=== PATIENT | male | born 1940 | race Caucasian/White ===

== ENCOUNTER 2018-09-24 11:46 | Inpatient (IN) ==
[2018-09-19 10:39] LABS: Basophils # (Auto) 0 K/mcL (0.0-0.3); Basophils % (Auto) 0.9 % (0.0-2.0); Eosinophils # (Auto) 0.4 K/mcL (0.0-0.7); Eosinophils % (Auto) 7.8 % (0.0-7.0); Granulocytes % (Auto) 51.9 % (38.0-78.0); Lymphocytes # (Auto) 1.7 K/mcL (1.5-4.8); Lymphocytes % (Auto) 31.2 % (15.5-49.0); Mean Cell Volume 88.7 fL (80.0-100.0); Mean Corpuscular HGB Conc 33.1 g/dL (31.0-36.0); Monocytes # (Auto) 0.4 K/mcL (0.1-0.9); Monocytes % (Auto) 8.2 % (1.0-12.0); Platelet Count 225 K/mcL (140-440); RBC 5.06 M/mcL (4.50-5.90)
[2018-09-19 10:44] LABS: Appearance,Urine CLEAR; Bilirubin,Urine NEG (NEG); Color,Urine YELLOW; Glucose,Urine (UA) NEGATIVE (NEG); Leukocyte Esterase,Urine NEG /uL (NEG); Protein,Urine NEG (NEG); Urine Blood NEG mg/dL (<0.03); Urobilinogen,Urine NEG (NEG)
[2018-09-19 11:12] LABS: Blood Urea Nitrogen 14 mg/dl (8-23)
[~2018-09-24 11:46] MED LIST: 0.9 % SODIUM CHLORIDE 9 ML, KETOROLAC 30 MG, ROPIVACAINE HCL/PF 49.5 ML, EPINEPHrine 0.... IJ SCH; ACETAMINOPHEN 500 MG TABLET PO SCH; CELECOXIB 200 MG CAPSULE PO SCH; PREGABALIN 75 MG CAPSULE PO SCH; ceFAZolin 2 GM in DEXTROSE 5% IN WATER 50 ML IV SCH; oxyCODONE 10 MG TAB.ER.12H PO SCH
[2018-09-24] MEDS ORDERED: ONDANSETRON 4 MG/2 ML VIAL IV ONE (16:05)
[2018-09-24] MEDS ORDERED: ePHEDrine 50 MG/ML AMPUL IV ONE (16:05)
[2018-09-24] MEDS ORDERED: ROPIVACAINE HCL/PF 20 ML VIAL IJ ONE (16:05)
[2018-09-24] MEDS ORDERED: KETAMINE 100 MG/ML ML IV ONE (16:05)
[2018-09-24] MEDS ORDERED: TRANEXAMIC ACID 1,000 MG/10 ML VIAL IV ONE ×3 (16:05→19:40)
[2018-09-24] MEDS ORDERED: PHENYLEPHRINE 10 MG/ML VIAL IV ONE (16:05)
[2018-09-24] MEDS ORDERED: MIDAZOLAM 5 MG/5 ML VIAL IV ONE (16:05)
[2018-09-24] MEDS ORDERED: GLYCOPYRROLATE 0.2 MG/ML VIAL IV ONE (16:05)
[2018-09-24] MEDS ORDERED: PROPOFOL 200 MG/20 ML VIAL IV ONE (16:05)
[2018-09-24] MEDS ORDERED: LIDOCAINE HCL/PF 100 MG/5 ML SYRINGE IV ONE (16:05)
[2018-09-24] MEDS ORDERED: DEXAMETHASONE 10 MG/ML VIAL IV ONE (16:05)
[2018-09-24] MEDS ORDERED: GENTAMICIN SULFATE 800 MG/20 ML VIAL IR ONE (16:20)
[2018-09-24] MEDS ORDERED: FLEETS ADULT ENEMA PR PRN (19:07)
[2018-09-24] MEDS ORDERED: TEMAZEPAM 15 MG CAPSULE PO PRN (19:07)
[2018-09-24] MEDS ORDERED: MAGNESIUM HYDROXIDE 30 ML ORAL.SUSP PO PRN (19:07)
[2018-09-24] MEDS ORDERED: POLYETHYLENE GLYCOL 3350 17 GM PACKET PO PRN (19:07)
[2018-09-24] MEDS ORDERED: BISACODYL 10 MG SUPP.RECT PR PRN (19:07)
[2018-09-24] MEDS ORDERED: BENZOCAINE/MENTHOL 1 LOZENGE PO PRN ×2 (19:07→19:13)
[2018-09-24] MEDS ORDERED: ACETAMINOPHEN 325 MG TABLET PO PRN (19:07)
[2018-09-24] MEDS ORDERED: ONDANSETRON 4 MG/2 ML VIAL IV PRN ×2 (19:07→19:13)
[2018-09-24] MEDS ORDERED: HYDROmorphone 2 MG/ML VIAL IV PRN ×2 (19:07→19:13)
--- NOTE | 2018-09-24 19:07 | Brief Operative Note ---
Date of procedure: 09/24/18 Pre-op diagnosis: right tka mechanical looseniing Post-op diagnosis: same Procedure: let right revision tka all components Anesthesia: DAKOTAH Surgeon: Win Dugan Candy Cutter Hand: Cale Mesa Estimated blood loss (cc): 50 Tourniquet Time (Minutes): 120 Specimens Removed/Pathology: none sent Disposition: PACU
[2018-09-24] MEDS ORDERED: fentaNYL 100 MCG/2 ML VIAL IV PRN (19:13)
[2018-09-24] MEDS ORDERED: MEPERIDINE 25 MG/ML SYRINGE IV PRN (19:13)
[2018-09-24] MEDS ORDERED: METHOCARBAMOL 1,000 MG/10 ML VIAL IV PRN (19:13)
[2018-09-24] MEDS ORDERED: FLUMAZENIL 0.1 MG/ML ML IV PRN (19:13)
[2018-09-24] MEDS ORDERED: NALOXONE HCL 0.4 MG/ML VIAL IV PRN (19:13)
[2018-09-24] MEDS ORDERED: IPRATROPIUM/ALBUTEROL 3 ML AMPUL.NEB NEB PRN (19:13)
[2018-09-24] MEDS ORDERED: KETOROLAC 15 MG/ML VIAL IV PRN (19:13)
[2018-09-24] MEDS ORDERED: LACTATED RINGERS 250 ML IV PRN (19:13)
[2018-09-24] MEDS ORDERED: LACTATED RINGERS 1,000 ML IV SCH (19:15)
[2018-09-24] MEDS ORDERED: SENNOSIDES 1 TABLET PO SCH (21:00)
[2018-09-24] MEDS: 0.45 % SODIUM CHLORIDE 1,000 ML IV SCH (21:06)
[2018-09-24] MEDS: DOCUSATE SODIUM 100 MG CAPSULE PO SCH (22:18)
[2018-09-24] MEDS: ASPIRIN 325 MG ENTERIC COATED TABLET PO SCH (22:18)
[2018-09-24] MEDS: HYDROcodone/APAP 10/325MG TABLET PO PRN (22:18)
[2018-09-24] MEDS: 0.9 % SODIUM CHLORIDE 10 ML SYRINGE IV SCH (22:19)
[2018-09-24] MEDS: ceFAZolin 1 GM VIAL IV SCH (22:19)
[2018-09-25] MEDS: KETOROLAC 15 MG/ML VIAL IV SCH ×3 (00:25→11:30)
--- NOTE | 2018-09-25 04:34 | XRay Report ---
CLINICAL INFORMATION: Postop total knee revision. COMPARISON: Preoperative film 12/31/2007 FINDINGS: Longstem total knee prostheses is anatomically aligned. Transverse fracture through the the superior patella shows 8 mm distraction of fracture fragments. No specific osseous abnormalities. There are few small calcifications ranging up to 8 mm in the tibiofemoral joint periphery. Mild diffuse soft tissue swelling seen - as expected. IMPRESSION: Total knee revision is anatomically aligned. Mildly displaced transverse fracture - superior pole patella Interpreted and Authenticated by: Parviz Peñaloza 09/25/18
[2018-09-25] MEDS: 0.9 % SODIUM CHLORIDE 10 ML SYRINGE IV SCH ×2 (04:59→12:46)
[2018-09-25] MEDS: HYDROcodone/APAP 10/325MG TABLET PO PRN (05:39)
[2018-09-25] MEDS: ceFAZolin 1 GM VIAL IV SCH (05:39)
[2018-09-25] MEDS: 0.45 % SODIUM CHLORIDE 1,000 ML IV SCH (05:57)
--- NOTE | 2018-09-25 07:08 | Operative Note ---
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 PROCEDURE: Right total knee revision of all three components. SURGEON: Win Dugan MD OUTSIDE PLANT FIELD ENGINEER: Cale Mesa PA-C ANESTHESIA: General LMA anesthesia. TOURNIQUET TIME: 120 minutes. IMPLANTS: Per nurse's note. These were long stem total knee arthroplasty implants from [employer] with an 11 mm poly constrained liner, a 40 mm oval patellar button. DESCRIPTION OF PROCEDURE: The patient was brought to the operating room and put to sleep with general LMA anesthesia. Once asleep, the patient had the right leg sterilely prepped and draped in the usual sterile fashion. A timeout was performed and we confirmed this was the operative site by x-rays, consent form and initials. A midline incision was then made. Once this was done, we then exposed the knee with a mid vastus approach. Tourniquet was inflated to 250 pounds of pressure and exposed the knee. It was very difficult because of the width of the patella and of the severity of the wear in the several fractures of the patella. We made a small chamfer cut laterally. We prepared the patella first and prepared it for a 40 mm implant. The patella was grossly loose. We removed the soft tissue from the poly and removed bone and planed it down to for a new implant to sit on, mostly inferiorly. We irrigated thoroughly and this seemed to track well. We then removed the other two components, the femur and the tibial baseplate. The tibial baseplate was grossly loose and bone had grown up around the edges. With these findings, this was easily removed. We placed an intramedullary guide maribel down in the tibia and then made our tibial cut from that. This was cut at neutral and put into place a size 6 baseplate with 8 mm of lateralization, or eccentricity with a 13 mm stem. We then prepared the femur. This was reamed up to the size of 15. It fit very well. We then trialed the 15 and made our new cuts for a +5 distal femur. We went up to a size 6 component to tighten the flexion that was loose and this was done with +5 wedge, distally a +5 wedge and this seemed to fit nicely with an 11 mm poly. We made the box cuts. Once all these components were readied and we had performed a complete synovectomy because of the metalosis that was noted throughout the knee, the whole knee was completely montemayor. The Oxinium femoral component was removed, but no wear of it. It seemed to have all come from the tibial base plate and its loosening. With this, we sent a soft tissue sample for high powered suarez by the pathologist and his reading was 1 cell per high powered field, no signs of infection. Once we had this back we did cemented into place the size 6 tibial baseplate with 8 mm of the eccentricity with a 13 mm stem, 150 mm long and this was cemented into place on the tibia setting the rotation for his anatomy. Once this was done, we then also prepared the femur with a size 7 stem, with also 8 mm of eccentricity at 7 o'clock position, 5 mm posterior wedges medially and laterally as well as 5 mm wedges distally. This seemed to match very nicely and this seemed to fit the cement. It was very secure and the implant seemed to be very secure. As it was tapped into place excess cement was removed. We then cemented into place a size 40 mm eccentric patella. This was clamped into place and secured until dried. We deflated the tourniquet at 120 minutes and controlled any bleeding. We irrigated thoroughly, kept the knee at 45 degrees and closed the mid vastus approach with #1 Stratafix x2 sutures, closed the skin with 2-0 Vicryl and adhesive closure. The patient tolerated this well. There was no complication. RBH:stevo Job ID: [id number] Doc ID: [id number] Win Dugan MD
--- NOTE | 2018-09-25 07:36 | Orthopedic Progress Note ---
Subjective Patient information: Note initiated : 09/25/18 at 7:35 am Service Date, if different from initiated Date: [] Patient: Jerome Nazario 78 y/o M admitted on 09/24/18 for Right Total Knee Arthroplasty Revision. Chief Complaint: [Pt is stable this morning on post operative day 1 without any significant concerns or complaints. Patients vital signs have remained stable. Patients dressing is dry and is grossly intact from a neurovascular and motor standpoint. Patients 10 point ROS is otherwise negative. ] Objective Vital signs: Vital Signs Temp Pulse Resp BP BP Pulse Ox 09/25/18 07:16 97.9 F 63 14 127/66 97 09/25/18 02:30 97.9 F 65 14 100/59 93 09/24/18 22:55 97.8 F 73 14 118/69 95 09/24/18 21:55 82 118/69 93 09/24/18 21:25 82 112/73 93 09/24/18 20:55 68 126/73 09/24/18 20:42 82 128/72 97 09/24/18 20:25 72 132/71 92 09/24/18 20:10 97.2 F 81 126/82 90 09/24/18 20:00 92 09/24/18 19:55 98 H 158/78 93 09/24/18 19:50 97.7 F 73 13 139/75 95 09/24/18 19:35 97.1 F 79 16 130/48 96 09/24/18 19:20 97.1 F 70 12 133/57 94 09/24/18 19:15 70 12 123/54 94 09/24/18 19:10 73 12 122/54 95 09/24/18 19:05 97.5 F 78 12 117/52 94 09/24/18 12:00 98.4 F 18 140/77 98 Intake and Output 09/24/18 09/25/18 09/25/18 21:59 05:59 13:59 Intake Total 2400 820 Output Total 675 600 Balance 2400 145 -600 Intake: Oral 820 IV - Manual Only 2400 Output: Void Amount 675 600 Other: Meal Dinner Percent of Meal Consumed 100% Urine Appearance Clear Clear Urine Color Dark Yellow Straw Urine Odor Normal Normal Weight 267 lb 8 oz Intake & Output: Intake & Output 09/24/18 09/25/18 09/25/18 21:59 05:59 13:59 Intake Total 2400 820 Output Total 675 600 Balance 2400 145 -600 Weight 267 lb 8 oz Intake: Oral 820 IV - Manual Only 2400 Output: Void Amount 675 600 Other: Meal Dinner Percent of Meal Consumed 100% Urine Appearance Clear Clear Urine Color Dark Yellow Straw Urine Odor Normal Normal Incision: Yes healing Incision clean and dry: Yes Dressing: Yes clean Weight bearing status: full Neurological exam IM: Yes motor sensory intact, Yes neurovascular intact Extremities exam IM: Yes Foot pink and warm, Yes neurovascular intact - Labs CBC & BMP: 09/25/18 04:23 09/19/18 09:08 Labs: 09/25/18 09/19/18 04:23 09:08 Hgb 14.9 Hct 36.8 L 44.9 Assessment and Plan (1) History of revision of total knee arthroplasty The patient has been educated regarding dressing care, Physical Therapy recommendations, home exercises, restrictions, and follow up appointments. The patient has had all necessary DME prescribed. The patient has remained relatively stable during their hospital course. Status: Acute
--- NOTE | 2018-09-25 07:38 | Discharge Summary ---
Ortho Discharge - TKA - Patient Instructions Diet: Regular Diet Activity: activity as tolerated, weight bearing as tolerated Total Knee Protocol: For Total Knee: Start ROM DIEGO with stationary bike or rocking chair. Work on gaining full extension of knee. Posterior dislocation precautions provided. Hip abductor strengthening and gait training instructions provided. Apply Cryocuff as instructed. Dressing Care: May shower in 2 days, Aquacel Ag - leave on for 5 days - Problem Maintenance (1) History of revision of total knee arthroplasty Status: Acute - Follow Up Plan Disposition: Home, Self-Care Prognosis: Good Rehab Potential: Good I certify that the patient requires SNF services: No Overall status at discharge: patient is progressing back to baseline - Orders For Discharge Prescriptions: Aspirin [Ecotrin] 325 mg PO BID #60 tab.ec Docusate Sodium [Colace] 100 mg PO BID #60 cap HYDROcodone/APAP 10/325MG [[place] 10-325Mg] 1 - 2 tab PO Q4HP PRN #75 tab PRN Reason: Pain Level 3-6
[2018-09-25] MEDS: ASPIRIN 325 MG ENTERIC COATED TABLET PO SCH (09:04)
[2018-09-25] MEDS: DOCUSATE SODIUM 100 MG CAPSULE PO SCH (09:07)
--- NOTE | 2018-09-26 13:28 | Surgical Pathology Report ---
HISTOLOGY SPECIMEN MICROSCOPIC DIAGNOSIS SYNOVIUM, RIGHT KNEE, EXCISION: -- SYNOVIUM AND SOFT TISSUE WITH CHRONIC INFLAMMATION AND ASSOCIATED WEAR DEBRIS. -- NO SIGNIFICANT NEUTROPHILIC INFLAMMATION IDENTIFIED (LESS THAN ONE NEUTROPHIL PER HIGH POWER FIELD). (DMT:adj) INTRAOPERATIVE CONSULTATION FROZEN SECTION DIAGNOSIS ([facility] [place] [place] FSA) SYNOVIUM, RIGHT KNEE, EXCISION: -- LESS THAN ONE NEUTROPHIL PER HIGH POWER FIELD. (DMT:adj) CLINICAL HISTORY Right knee pain; total knee arthroplasty in 2007. GROSS DESCRIPTION Received fresh for frozen section consultation, labeled right knee synovium, is a 4.7 x 2.5 x 0.8 cm ludwig-pink fibrofatty soft tissue fragment. Approximately 30% of the specimen has montemayor-black discoloration. The specimen is serially sectioned and approximately 70% is submitted for frozen section consultation and resubmitted as FSA. (DMT:sln) Electronically Signed by: Shaka Orellana M.D.
== END 2018-09-25 14:18 | disposition home or self-care (01) | DRG 467 ==
LOC: MEDSUR 11:46
PROVIDERS: ADMIT Orthopaedic Surgery; ATTEND Orthopaedic Surgery

== ENCOUNTER 2020-08-19 15:25 | Inpatient (IN) ==
[2020-08-19] MEDS ORDERED: 0.9 % SODIUM CHLORIDE 1,000 ML IV ONE (16:14)
--- NOTE | 2020-08-19 16:31 | Emergency Department Note ---
HPI General Chief complaint: Cold/Flu Symptoms Stated complaint: covid positive, feels weak Time Seen by Provider: 08/19/20 15:34 Source: patient Mode of arrival: ambulatory Limitations: no limitations History of Present Illness HPI Narrative: 79-year-old male who tested positive for Covid yesterday. He is been having symptoms for 8 days. He is having sinus congestion, dry cough, fatigue, and shortness of breath that is worse with laying down. He is having some mild nausea with his coughing, no vomiting, no diarrhea. Not on any chronic medications. Does not have a history of hypertension. Blood pressures are slightly elevated here at 146/70 mmHg. Denies fever/chills/sweats. also tested positive for Covid. Related Data Previous Rx's Medication Instructions Recorded aspirin 325 mg PO BID #60 tab.ec 09/25/18 docusate sodium 100 mg PO BID #60 cap 09/25/18 hydrocodone-acetaminophen 1 - 2 tab PO Q4HP PRN #75 tab 09/25/18 Allergies Allergy/AdvReac Type Severity Reaction Status Date / Time No Known Drug Allergies Allergy Verified 09/24/18 22:32 Review of Systems ROS ROS Narrative: Narrative: All systems ED: reviewed and negative except as stated. PFSH Narrative Patient History Narrative: Narrative: Medical/Surgical/Family History All Active Problems (Updated 08/19/20 @ 18:54 by Nolvia Carvajal PA-C) History of revision of total knee arthroplasty (Acute) Hypoxia (Acute) SARS-CoV-2 positive (Acute) Pneumonia (Acute) Acute hyponatremia (Acute) Social History Smoking Status: Never smoker Exam Narrative Narrative: General: AOx3, NAD, nontoxic appearing. Pleasant and conversant. HEENT: PERRLA, EOMI, normocephalic. Moist mucous membranes. Normal facies and normal dentition. Congested. Chest: Symmetric, no pain to palpation Respiratory: Diminished breath sounds in the right lower base. Crackles throughout. No respiratory distress. Unlabored breathing. Hypoxic to 87% on room air. This improves to 95% with 2 L nasal cannula. Heart: Regular rate and rhythm, no murmurs/clicks/rubs. Abdomen: Non-tender, Non distended, normal bowel tones. No organomegaly. Extremities: Warm and well perfused. No edema. DP 2+ bilaterally. No venous stasis. Neuro: No focal deficits. Cranial nerves II-XII normal. Skin: Warm dry, no rashes or lesions, no cyanosis. Psych: Normal mood and affect Heme/Lymph: No bruising General Limitations: no limitations Course Course Course Narrative: 79-year-old male positive for Covid presents with hypoxia. Reevaluation(s) Reevaluation #1: We will check basic blood work, lactic acid, chest x-ray. Evaluate for oxygen need--> sats 86 to 87% on room air. Reevaluation #2: Patient meets criteria for severe Covid. Start remdesivir and dexamethasone. Chest x-ray shows possible interstitial edema/inflammation, will start empiric ceftriaxone and azithromycin empirically for possible pneumonia. Sodium is 128. He is receiving normal saline IV fluid replacement. Oxygen saturations are maintaining at 95% on 2 L nasal cannula. Awaiting hospitalist for admission. Vital Signs Vital signs: Vital Signs Temperature 98.6 F 08/19/20 15:26 Pulse Rate 75 08/19/20 15:26 Respiratory Rate 18 08/19/20 15:26 Blood Pressure 147/73 08/19/20 15:26 Pulse Oximetry (%) 95 08/19/20 15:26 Temperature 98.6 F 08/19/20 15:26 Pulse Rate 71 08/19/20 19:24 Respiratory Rate 18 08/19/20 15:26 Blood Pressure 144/63 08/19/20 18:31 Pulse Oximetry (%) 94 08/19/20 19:25 [facility] MDM Narrative Medical decision making narrative: Hypoxia Covid pneumonia Severe Covid Hyponatremia Patient meets criteria for admission. He has been discussed with the hospitalist who is accepted. Remdesivir and dexamethasone per Protocol. Rocephin and azithromycin have also been given. He has received 1 L normal [place] ine. Lab Data Result diagrams: 08/19/20 16:25 08/19/20 16:25 Labs: Lab Results 08/19/20 08/19/20 08/19/20 Range/Units 16:25 16:25 16:57 WBC 5.9 (4.5-11.0) K/mcL RBC 4.82 (4.50-5.90) M/mcL Hgb 14.3 (13.5-16.5) g/dL Hct 42.7 (41.0-55.0) % MCV 88.6 (80.0-100.0) fL MCH 29.7 (26.0-34.0) pg MCHC 33.5 (31.0-36.0) g/dL RDW 13.3 (11.5-14.5) % Plt Count 194 (140-440) K/mcL MPV 11.3 H (7.4-10.4) fL Seg Neutrophils % 71 (38-78) % Band Neutrophils % 3 (0-10) % Lymphocytes % 18 (15-49) % Monocytes % (Manual) 8 (1-12) % Platelet Estimate Normal (Normal) RBC Morphology Normal (Normal) VBG Lactic Acid 0.9 (0.5-2.0) mmol/L Sodium 128 L (133-145) mmol/L Potassium 4.2 (3.3-5.1) mmol/L Chloride 93 L (96-108) mmol/L Carbon Dioxide 27 (22-30) mmol/L Anion Gap 8.0 (8.0-16.0) BUN 15 (8-23) mg/dL Creatinine 1.1 (0.7-1.2) mg/dL GFR Calculation 64 Glucose 106 H (70-105) mg/dL Calcium 8.6 (8.6-10.4) mg/dL Total Bilirubin 0.7 (0.1-1.0) mg/dL AST 45 H (<40) U/L ALT 19 (<40) U/L Alkaline Phosphatase 37 L (39-117) U/L Total Protein 6.8 (5.9-8.4) gm/dL Albumin 3.6 (3.2-5.2) gm/dL Globulin 3.2 (2.2-3.7) gm/dL Albumin/Globulin Ratio 1.1 (1.0-2.3) Discharge Plan Patient/Caregiver Discharge Instructions Pt seen by WHITING CAN WORKER/PA only: Yes Clinical Impression: Hypoxia, SARS-CoV-2 positive, Pneumonia, Acute hyponatremia Patient Disposition: Xfer As Inpt ([facility]) Follow up with: Shaka Persaud MD [Primary Care Provider] - Prescriptions: No Action hydrocodone-acetaminophen 1 TAB tablet 1 - 2 tab PO Q4HP PRN (Reason: Pain Level 3-6) Qty: 75 RF: 0 aspirin 325 MG tablet,delayed release (DR/EC) 325 mg PO BID Qty: 60 RF: 0 docusate sodium 100 MG capsule 100 mg PO BID Qty: 60 RF: 0
--- NOTE | 2020-08-19 17:20 | XRay Report ---
INDICATION: hypoxia TECHNIQUE: AP portable semiupright chest x-ray COMPARISON: None FINDINGS: Lungs:No parenchymal consolidation. There is diffuse interstitial abnormality with peribronchial thickening and probable septal lines. Findings are probably secondary to interstitial edema. Is possible. Clinical correlation recommended. Heart, vascular:Mild cardiomegaly. Pulmonary vascularity is prominent consistent with pulmonary congestion Mediastinum, jason:No mediastinal widening. No hilar mass Pleura:No pleural fluid. No pleural-based mass or calcification Skeletal:Previous right reverse shoulder arthroplasty IMPRESSION: 1. Cardiomegaly and probable interstitial pulmonary edema 2. Interstitial pneumonia is possible Interpreted and Authenticated by: Parviz Ayers 08/19/20
[2020-08-19] MEDS ORDERED: cefTRIAXone 2 GM in DEXTROSE 5% IN WATER 50 ML IV ONE (17:42)
[2020-08-19] MEDS ORDERED: AZITHROMYCIN 500 MG in DEXTROSE 5% IN WATER 250 ML IV ONE (17:43)
[2020-08-19 17:51] LABS: Hematocrit 42.7 % (41.0-55.0); Hemoglobin 14.3 g/dL (13.5-16.5); Mean Cell Volume 88.6 fL (80.0-100.0); Mean Corpuscular HGB Conc 33.5 g/dL (31.0-36.0); Mean Platelet Volume 11.3 fL (7.4-10.4); Platelet Count 194 K/mcL (140-440); RBC 4.82 M/mcL (4.50-5.90); Red Cell Distribution Width 13.3 % (11.5-14.5); WBC 5.9 K/mcL (4.5-11.0)
[2020-08-19 18:07] LABS: ALT/SGPT 19 U/L (<40); AST/SGOT 45 U/L (<40); Albumin 3.6 gm/dL (3.2-5.2); Albumin/Globulin Ratio 1.1 (1.0-2.3); Alkaline Phosphatase 37 U/L (39-117); Bilirubin,Total 0.7 mg/dL (0.1-1.0); Blood Urea Nitrogen 15 mg/dL (8-23); Calcium 8.6 mg/dL (8.6-10.4); Carbon Dioxide 27 mmol/L (22-30); Chloride 93 mmol/L (96-108); Globulin 3.2 gm/dL (2.2-3.7); Glomerular Filtration Rate 64; Glucose 106 mg/dL (70-105)
[2020-08-19 18:09] LABS: Band Neutrophils % 3 % (0-10); Lymphocytes % 18 % (15-49); Monocytes % (Manual) 8 % (1-12); Platelet Estimate NORMAL (Normal); RBC Morphology NORMAL (Normal); Segmented Neutrophils % 71 % (38-78)
[2020-08-19] MEDS ORDERED: REMDESIVIR 200 MG in 0.9 % SODIUM CHLORIDE 250 ML IV ONE (18:17)
[2020-08-19] MEDS ORDERED: DEXAMETHASONE 10 MG/ML VIAL IV ONE (18:19)
--- NOTE | 2020-08-19 19:29 | Internal Med History&Physical ---
HPI History of Present Illness Patient information: Note initiated : 08/19/20 at 7:24 pm Service Date, if different from initiated Date: [] Patient: Jerome Nazario a 79 y/o M admitted on for covid positive, feels weak. Chief Complaint: [] History of present illness: Mr. Nazario is a 79 year old male history of obesity, osteoarthritis status post knee arthroplasty who presented to the ED for progressive shortness of breath, dry cough, and pleuritic chest pain for about 7 days. The patient tested positive for COVID 19 the day prior to presenting to the ED. In the ED the patient had a new oxygen requirement of about 2 l/min. There is no leukocytosis, chest xray appears consistent with viral pneumonia. The patient was admitted for acute hypoxic respiratory failure secondary to COVID 19. Review of systems Constitutional: positive for fever and fatigue Eyes: no vision changes or pain Cardiovascular: positive for pleuritic chest pain, no palpitations Respiratory: positive for dry cough and dyspnea Gastrointestinal: positive for abdominal pain likely musculoskeletal, no nausea, vomiting, or diarrhea Genitourinary: no dysuria or difficulty voiding Musculoskeletal: no arthralgia or myalgia Integumentary: no skin lesion or wound Neurological: no focal weakness or numbness Psychiatric: no anxiety or depression PFSH PFSH All Active Problems (Updated 08/19/20 @ 18:54 by Nolvia Carvajal PA-C) History of revision of total knee arthroplasty (Acute) Hypoxia (Acute) SARS-CoV-2 positive (Acute) Pneumonia (Acute) Acute hyponatremia (Acute) MEDS/ALLERGIES Home Medications and Allergies Home Medications Medication Instructions Recorded Confirmed Type aspirin 325 mg PO BID #60 tab.ec 09/25/18 Rx docusate sodium 100 mg PO BID #60 cap 09/25/18 Rx hydrocodone-acetaminophen 1 - 2 tab PO Q4HP PRN #75 tab 09/25/18 Rx Allergies Allergy/AdvReac Type Severity Reaction Status Date / Time No Known Drug Allergies Allergy Verified 09/24/18 22:32 EXAM Constitutional Vitals: Temp Pulse Resp BP Pulse Ox 98.6 F 68 18 144/63 95 08/19/20 15:26 08/19/20 18:31 08/19/20 15:26 08/19/20 18:31 08/19/20 18:31 Additional findings Additional findings: Head: Atraumatic, normal inspection. Eyes: normal appearance, no scleral icterus. Neck: full ROM Respiratory: bilateral fine rales and wheezing Cardiovascular: normal rate and rhythm, S1, S2. GI/Abdominal: soft, nontender, no guarding. Extremities: full range of motion, nontender. Neurological: CN II-XII intact, intact motor, intact sensation. Psychiatric: normal mood. Skin: warm, normal color DATA Data Completed and Pending Labs: Labs from last 24 hours 08/19/20 08/19/20 08/19/20 16:57 16:25 16:25 WBC 5.9 RBC 4.82 Hgb 14.3 Hct 42.7 MCV 88.6 MCH 29.7 MCHC 33.5 RDW 13.3 Plt Count 194 MPV 11.3 H Seg Neutrophils % 71 Band Neutrophils % 3 Lymphocytes % 18 Monocytes % (Manual) 8 Platelet Estimate Normal RBC Morphology Normal VBG Lactic Acid 0.9 Sodium 128 L Potassium 4.2 Chloride 93 L Carbon Dioxide 27 Anion Gap 8.0 BUN 15 Creatinine 1.1 GFR Calculation 64 Glucose 106 H Calcium 8.6 Total Bilirubin 0.7 AST 45 H ALT 19 Alkaline Phosphatase 37 L Total Protein 6.8 Albumin 3.6 Globulin 3.2 Albumin/Globulin Ratio 1.1 A/P Narrative A/P Narrative: Assessment: 79 year old male with a history of obesity, knee osteoarthritis admitted for acute hypoxic respiratory failure likely secondary to COVID 19. ED labs also showed moderate hyponatremia. #Acute hypoxic respiratory failure #COVID 19 #Hyponatremia-moderate #Obesity-BMI 35 #Osteoarthritis Plan -Dexamethasone and Remdesivir per COVID 19 protocol. -Oxygen supplementation as needed. -Follow sodium in AM. -Follow CBC, inpatient panel, CPR. -DVT ppx: Lovenox SQ BID and SCD -Code status: Full -Disposition: will depend on clinical course Time Spent With Patient Time: Total time spent is greater than 50% in coordination of care (as documented) at patient's floor/unit and/or counseling patient:
[2020-08-19] MEDS ORDERED: REMDESIVIR 100 MG in 0.9 % SODIUM CHLORIDE 250 ML IV SCH (20:43)
[2020-08-19] MEDS ORDERED: ONDANSETRON 4 MG/2 ML VIAL IV PRN (20:43)
[2020-08-19] MEDS ORDERED: ALBUTEROL SULFATE 2.5 MG/3 ML NEBULIZER NEB PRN (20:43)
[2020-08-19] MEDS: ENOXAPARIN 40 MG/0.4 ML SYRINGE SQ SCH (21:41)
[2020-08-19] MEDS: 0.9 % SODIUM CHLORIDE 10 ML SYRINGE IV SCH (21:41)
[2020-08-19] MEDS: SENNOSIDES 1 TABLET PO SCH (21:42)
[2020-08-19] MEDS: DOCUSATE SODIUM 100 MG CAPSULE PO SCH (21:42)
[2020-08-20] MEDS: 0.9 % SODIUM CHLORIDE 10 ML SYRINGE IV SCH ×4 (04:50→21:03)
[2020-08-20 07:38] LABS: Hematocrit 43.9 % (41.0-55.0); Hemoglobin 14.7 g/dL (13.5-16.5); Mean Cell Volume 87.8 fL (80.0-100.0); Mean Corpuscular HGB Conc 33.5 g/dL (31.0-36.0); Mean Platelet Volume 11.6 fL (7.4-10.4); Platelet Count 198 K/mcL (140-440); Red Cell Distribution Width 13.5 % (11.5-14.5); WBC 3.4 K/mcL (4.5-11.0)
[2020-08-20 07:40] LABS: ALT/SGPT 17 U/L (<40); AST/SGOT 36 U/L (<40); Albumin 3.4 gm/dL (3.2-5.2); Albumin/Globulin Ratio 1.1 (1.0-2.3); Alkaline Phosphatase 37 U/L (39-117); Bilirubin,Direct < 0.2 mg/dL (0-0.3); Bilirubin,Total 0.4 mg/dL (0.1-1.0); Blood Urea Nitrogen 18 mg/dL (8-23); Calcium 8.8 mg/dL (8.6-10.4); Carbon Dioxide 25 mmol/L (22-30); Chloride 100 mmol/L (96-108); Globulin 3.1 gm/dL (2.2-3.7); Glomerular Filtration Rate 71; Glucose 160 mg/dL (70-105); Lactate Dehydrogenase 563 U/L (135-225); Phosphorous 3.4 mg/dL (2.5-4.5); Triglycerides 49 mg/dL (<150); Uric Acid 5.6 mg/dL (2.5-8.0)
[2020-08-20 08:19] LABS: Band Neutrophils % 2 % (0-10); Lymphocytes % 11 % (15-49); Platelet Estimate NORMAL (Normal); RBC Morphology NORMAL (Normal); Reactive Lymphocytes 7 % (0-2); Segmented Neutrophils % 80 % (38-78)
[2020-08-20] MEDS ORDERED: DEXAMETHASONE 10 MG/ML VIAL IV SCH (09:00)
[2020-08-20] MEDS: ENOXAPARIN 40 MG/0.4 ML SYRINGE SQ SCH ×2 (09:55→21:03)
[2020-08-20] MEDS: DOCUSATE SODIUM 100 MG CAPSULE PO SCH ×2 (09:56→21:03)
--- NOTE | 2020-08-20 10:27 | Internal Med Progress Note ---
SUBJECTIVE Subjective Patient information: Note initiated : 08/20/20 at 10:26 am Service Date, if different from initiated Date: [] Patient: Jerome Nazario 79 y/o M admitted on 08/19/20 for covid positive, feels weak. Chief Complaint: [] Interval history: Mr. Nazario is a 79 year old male history of obesity, osteoarthritis status post knee arthroplasty who presented to the ED for progressive shortness of breath, dry cough, and pleuritic chest pain for about 7 days. The patient tested positive for COVID 19 the day prior to presenting to the ED. In the ED the patient had a new oxygen requirement of about 2 l/min. There is no leukocytosis, chest xray appears consistent with viral pneumonia. The patient was admitted for acute hypoxic respiratory failure secondary to COVID 19. 08/20 The patient feels better today, improved oxygen requirement. Physical exam Head: Atraumatic, normal inspection. Eyes: normal appearance, no scleral icterus. Neck: full ROM Respiratory: no respiratory distress, bilateral fine rales, bilateral expiratory wheezes when coughing. Cardiovascular: normal rate and rhythm, S1, S2. GI/Abdominal: soft, nontender, no guarding. Extremities: full range of motion, nontender. Neurological: CN II-XII intact, intact motor, intact sensation. Psychiatric: normal mood. Skin: warm, normal color Constitutional Vitals: Vital Signs Temp Pulse Resp BP Pulse Ox 96.9 F L 65 18 124/84 94 08/20/20 07:14 08/20/20 07:14 08/20/20 07:14 08/20/20 07:14 08/20/20 07:14 Period Temp Pulse Resp BP Sys/Callaway Pulse Ox Last 24 Hr 96.6 F-99.7 F 61-79 18-20 124-164/63-84 87-95 Intake and Output 08/19/20 08/20/20 08/20/20 21:59 05:59 13:59 Intake Total 1550 680 Output Total 475 1 Balance 1550 205 -1 Weight 114.078 kg Intake & Output: Intake & Output 08/19/20 08/20/20 08/20/20 21:59 05:59 13:59 Intake Total 1550 680 Output Total 475 1 Balance 1550 205 -1 Weight 114.078 kg Intake: IV 1550 Sodium Chloride 0.9% 1,000 ml @ 1000 Wide Open IV BOLUS ONE Rx#: [id number] Zithromax 500 mg In Dextrose 5% 250 in Water 250 ml @ 250 mls/hr IV ONCE ONE Rx#:[id number] Veklury 200 mg In Sodium 250 Chloride 0.9% 250 ml @ 500 mls/ hr IV ONCE ONE Rx#:[id number] Rocephin 2 gm In Dextrose 5% in 50 Water 50 ml @ 100 mls/hr IV ONCE ONE Rx#:[id number] Oral 680 Output: Void Amount 475 Urine/Stool Mix 1 Other: Meal Nourishment/Supplement Percent of Meal Consumed 100% Nourishment/Supplement name yogurt Urine Appearance Clear Urine Color Bright Yellow Dark Yellow Stool Size Moderate Stool Color Brown Stool Consistency Normal for Patient # Voids 1 1 1 # Bowel Movements 1 OBJ DATA Labs CBC & Chem 7: 08/20/20 05:58 08/20/20 05:58 Labs: Abnormal Lab Results 08/20/20 08/20/20 08/19/20 05:58 05:58 16:25 WBC 3.4 L MPV 11.6 H Seg Neutrophils % 80 H Lymphocytes % 11 L Reactive Lymphocytes 7 H Sodium 128 L Chloride 93 L Glucose 160 H 106 H AST 45 H Alkaline Phosphatase 37 L 37 L Lactate Dehydrogenase 563 H C-Reactive Protein 11.10 H 08/19/20 16:25 WBC MPV 11.3 H Seg Neutrophils % Lymphocytes % Reactive Lymphocytes Sodium Chloride Glucose AST Alkaline Phosphatase Lactate Dehydrogenase C-Reactive Protein Meds: Medications Acetylcysteine (Acetylcysteine 800 Mg/4 Ml Vial) 600 mg NEB QID [facility] Albuterol Sulfate (Albuterol Sulfate 2.5 Mg/3 Ml Nebulizer) 2.5 mg NEB Q2HP PRN PRN Reason: Shortness Of Breath Dexamethasone (Dexamethasone 10 Mg/Ml Vial) 6 mg IV DAILY [facility] Stop: 08/29/20 08:59 Last Admin: 08/20/20 09:56 Dose: 6 mg Documented by: Docusate Sodium (Docusate Sodium 100 Mg Capsule) 100 mg PO BID [facility] Last Admin: 08/20/20 09:56 Dose: 100 mg Documented by: Enoxaparin Sodium (Enoxaparin 40 Mg/0.4 Ml Syringe) 40 mg SQ BID [facility] Last Admin: 04/08/21 09:55 Dose: 40 mg Documented by: REMDESIVIR 100 mg/ Sodium (Chloride) 250 mls @ 500 mls/hr IV Q24H [facility] Stop: 08/23/20 14:29 Ondansetron HCl (Ondansetron 4 Mg/2 Ml Vial) 4 mg IV Q6HP PRN PRN Reason: Nausea And Vomiting Senna (Sennosides 1 Tablet) 2 tab PO HS [facility] Last Admin: 08/19/20 21:42 Dose: Not Given Documented by: Sodium Chloride (0.9 % Sodium Chloride 10 Ml Syringe) 10 ml IV Q8 [facility] Last Admin: 08/20/20 09:57 Dose: 10 ml Documented by: A/P Narrative A/P Narrative: Assessment: 79 year old male with a history of obesity, knee osteoarthritis admitted for acute hypoxic respiratory failure secondary to COVID 19. The patient had a positive SARS-CoV-2 PCR the day prior to hospital admission. Symptoms onset was about a week prior to admission. #Acute hypoxic respiratory failure: improved oxygen requirement #COVID 19 #Hyponatremia-resolved #Obesity-BMI 35 #Osteoarthritis Plan -Dexamethasone and Remdesivir per COVID 19 protocol. -Oxygen supplementation as needed. -Follow CBC, inpatient panel, CPR. -DVT ppx: Lovenox SQ BID and SCD -Code status: DNR -Disposition: probably home in a day or two depending on clinical course Time Spent With Patient Time: Total time spent is greater than 50% in coordination of care (as d ocumented) at patient's floor/unit and/or counseling patient: QUALITY VTE Deep Vein Thrombosis/Pulmonary Embolism Present on Admission: No
[2020-08-20] MEDS ORDERED: ACETYLCYSTEINE 800 MG/4 ML VIAL NEB SCH (13:00)
[2020-08-20] MEDS: REMDESIVIR 100 MG in 0.9 % SODIUM CHLORIDE 250 ML IV SCH (15:06)
[2020-08-20] MEDS: SENNOSIDES 1 TABLET PO SCH (21:03)
[2020-08-21] MEDS: 0.9 % SODIUM CHLORIDE 10 ML SYRINGE IV SCH ×3 (06:00→20:51)
[2020-08-21 06:37] LABS: Hematocrit 42.1 % (41.0-55.0); Hemoglobin 14.3 g/dL (13.5-16.5); Mean Platelet Volume 11.8 fL (7.4-10.4); Platelet Count 225 K/mcL (140-440); RBC 4.84 M/mcL (4.50-5.90); Red Cell Distribution Width 13.3 % (11.5-14.5); WBC 9.2 K/mcL (4.5-11.0)
[2020-08-21 07:05] LABS: ALT/SGPT 22 U/L (<40); AST/SGOT 37 U/L (<40); Albumin/Globulin Ratio 0.9 (1.0-2.3); Alkaline Phosphatase 36 U/L (39-117); Bilirubin,Direct < 0.2 mg/dL (0-0.3); Bilirubin,Total 0.4 mg/dL (0.1-1.0); Blood Urea Nitrogen 26 mg/dL (8-23); Calcium 8.9 mg/dL (8.6-10.4); Carbon Dioxide 25 mmol/L (22-30); Chloride 103 mmol/L (96-108); Globulin 3.2 gm/dL (2.2-3.7); Glomerular Filtration Rate 71; Glucose 145 mg/dL (70-105); Lactate Dehydrogenase 492 U/L (135-225); Phosphorous 3.2 mg/dL (2.5-4.5); Triglycerides 44 mg/dL (<150); Uric Acid 6.4 mg/dL (2.5-8.0)
[2020-08-21 07:15] LABS: Band Neutrophils % 17 % (0-10); Lymphocytes % 11 % (15-49); Monocytes % (Manual) 3 % (1-12); Platelet Estimate NORMAL (Normal); RBC Morphology NORMAL (Normal); Reactive Lymphocytes 4 % (0-2); Segmented Neutrophils % 65 % (38-78)
--- NOTE | 2020-08-21 07:51 | XRay Report ---
INDICATION: hypoxia likely due to COVID 19-incraesed oxygen re TECHNIQUE: AP portable semiupright chest x-ray COMPARISON: Previous chest x-ray dated 08/19/2020 FINDINGS: Lungs:Interstitial infiltrates with bibasilar predominance. Right worse than left. There has been improvement in vascularity in these interstitial infiltrates are consistent with interstitial pneumonia, probably covid Heart, vascular:Persistent cardiomegaly. Pulmonary vascularity is improved since 08/19/2020 Mediastinum, jason:No mediastinal widening. No hilar mass Pleura:No pleural fluid. No pleural-based mass or calcification Skeletal:Previous right reverse shoulder arthroplasty IMPRESSION: 1. Bilateral interstitial infiltrates with bibasilar predominance, right worse in left 2. Findings consistent with pneumonia and covid is likely 3. Cardiomegaly Interpreted and Authenticated by: Parviz Ayers 08/21/20
[2020-08-21] MEDS: ENOXAPARIN 40 MG/0.4 ML SYRINGE SQ SCH ×2 (07:55→20:50)
[2020-08-21] MEDS: DEXAMETHASONE 10 MG/ML VIAL IV SCH (07:55)
[2020-08-21] MEDS: DOCUSATE SODIUM 100 MG CAPSULE PO SCH ×2 (07:55→20:50)
--- NOTE | 2020-08-21 10:37 | Internal Med Progress Note ---
SUBJECTIVE Subjective Patient information: Note initiated : 08/21/20 at 10:32 am Service Date, if different from initiated Date: [] Patient: Jerome Nazario 79 y/o M admitted on 08/19/20 for covid positive, feels weak. Chief Complaint: [] Interval history: Mr. Nazario is a 79 year old male history of obesity, osteoarthritis status post knee arthroplasty who presented to the ED for progressive shortness of breath, dry cough, and pleuritic chest pain for about 7 days. The patient tested positive for COVID 19 the day prior to presenting to the ED. In the ED the patient had a new oxygen requirement of about 2 l/min. There is no leukocytosis, chest xray appears consistent with viral pneumonia. The patient was admitted for acute hypoxic respiratory failure secondary to COVID 19. 08/20 The patient feels better today, improved oxygen requirement. 08/21 The patient feels better however requiring 3l/min this morning. Desaturates quickly on room air. Repeat chest xray shows bilateral interstitial infiltrates consistent with COVID 19. Physical exam Head: Atraumatic, normal inspection. Eyes: normal appearance, no scleral icterus. Neck: full ROM Respiratory: on nasal canula oxygen 3l/min, bilateral fine rales, no wheezes. Cardiovascular: normal rate and rhythm, S1, S2. GI/Abdominal: soft, nontender, no guarding. Extremities: full range of motion, nontender. Neurological: CN II-XII intact, intact motor, intact sensation. Psychiatric: normal mood. Skin: warm, normal color Constitutional Vitals: Vital Signs Temp Pulse Resp BP Pulse Ox 96.9 F L 74 16 133/92 90 08/21/20 10:29 08/21/20 10:29 08/21/20 10:29 08/21/20 10:29 08/21/20 10:29 Period Temp Pulse Resp BP Sys/Callaway Pulse Ox Last 24 Hr 96.8 F-97.9 F 54-74 16-18 117-138/72-96 90-96 Intake and Output 08/20/20 08/21/20 08/21/20 21:59 05:59 13:59 Intake Total 2550 200 Output Total 1275 200 350 Balance 1275 0 -350 Weight 116.165 kg Intake & Output: Intake & Output 08/20/20 08/21/20 08/21/20 21:59 05:59 13:59 Intake Total 2550 200 Output Total 1275 200 350 Balance 1275 0 -350 Weight 116.165 kg Intake: IV 250 Veklury 100 mg In Sodium 250 Chloride 0.9% 250 ml @ 500 mls/ hr IV Q24H [facility] Rx#:[id number] Oral 2300 200 Output: Void Amount 1275 200 350 Other: Meal Lunch Percent of Meal Consumed 75% Feeding Ability Independent Urine Appearance Clear Clear Clear Urine Color Dark Yellow Bright Yellow Bright Yellow Urine Odor Normal Normal OBJ DATA Labs CBC & Chem 7: 08/21/20 05:37 08/21/20 05:37 Labs: Abnormal Lab Results 08/21/20 08/21/20 08/21/20 05:37 05:37 05:37 WBC MPV 11.8 H Seg Neutrophils % Band Neutrophils % 17 H Lymphocytes % 11 L Reactive Lymphocytes 4 H Sodium Chloride BUN 26 H Glucose 145 H AST Alkaline Phosphatase 36 L Lactate Dehydrogenase 492 H C-Reactive Protein 6.40 H Albumin 3.0 L Albumin/Globulin Ratio 0.9 L Procalcitonin 0.11 H 08/20/20 08/20/20 08/19/20 05:58 05:58 16:25 WBC 3.4 L MPV 11.6 H Seg Neutrophils % 80 H Band Neutrophils % Lymphocytes % 11 L Reactive Lymphocytes 7 H Sodium 128 L Chloride 93 L BUN Glucose 160 H 106 H AST 45 H Alkaline Phosphatase 37 L 37 L Lactate Dehydrogenase 563 H C-Reactive Protein 11.10 H Albumin Albumin/Globulin Ratio Procalcitonin 08/19/20 16:25 WBC MPV 11.3 H Seg Neutrophils % Band Neutrophils % Lymphocytes % Reactive Lymphocytes Sodium Chloride BUN Glucose AST Alkaline Phosphatase Lactate Dehydrogenase C-Reactive Protein Albumin Albumin/Globulin Ratio Procalcitonin Meds: Medications Albuterol Sulfate (Albuterol Sulfate 2.5 Mg/3 Ml Nebulizer) 2.5 mg NEB Q2HP PRN PRN Reason: Shortness Of Breath Dexamethasone (Dexamethasone 10 Mg/Ml Vial) 6 mg IV DAILY [facility] Stop: 08/29/20 09:01 Last Admin: 08/21/20 07:55 Dose: 6 mg Documented by: Docusate Sodium (Docusate Sodium 100 Mg Capsule) 100 mg PO BID [facility] Last Admin: 08/21/20 07:55 Dose: 100 mg Documented by: Enoxaparin Sodium (Enoxaparin 40 Mg/0.4 Ml Syringe) 40 mg SQ BID [facility] Last Admin: 08/21/20 07:55 Dose: 40 mg Documented by: REMDESIVIR 100 mg/ Sodium (Chloride) 250 mls @ 500 mls/hr IV Q24H [facility] Stop: 08/23/20 14:29 Last Infusion: 08/20/20 15:50 Dose: Infused Documented by: Ondansetron HCl (Ondansetron 4 Mg/2 Ml Vial) 4 mg IV Q6HP PRN PRN Reason: Nausea And Vomiting Senna (Sennosides 1 Tablet) 2 tab PO HS [facility] Last Admin: 08/20/20 21:03 Dose: Not Given Documented by: Sodium Chloride (0.9 % Sodium Chloride 10 Ml Syringe) 10 ml IV Q8 [facility] Last Admin: 08/21/20 06:00 Dose: Not Given Documented by: A/P Narrative A/P Narrative: Assessment: 79 year old male with a history of obesity, knee osteoarthritis admitted for acute hypoxic respiratory failure secondary to COVID 19. The patient had a positive SARS-CoV-2 PCR the day prior to hospital admission. Symptoms onset was about a week prior to admission. CRP improved 11.1 to 6.4. Procalcitonin .11. Follow up chest xray consistent with COVID-19. #Acute hypoxic respiratory failure: #COVID 19 #Hyponatremia-resolved #Obesity-BMI 35 #Osteoarthritis Plan -Dexamethasone and Remdesivir per COVID 19 protocol. -Oxygen supplementation, wean as able. -Follow CBC, inpatient panel, CPR. -DVT ppx: Lovenox SQ BID and SCD -Code status: DNR -Disposition: probably home in a day or two depending on clinical course Time Spent With Patient Time: Total time spent is greater than 50% in coordination of care (as doc umented) at patient's floor/unit and/or counseling patient: QUALITY VTE Deep Vein Thrombosis/Pulmonary Embolism Present on Admission: No
[2020-08-21] MEDS: REMDESIVIR 100 MG in 0.9 % SODIUM CHLORIDE 250 ML IV SCH (13:25)
[2020-08-21] MEDS: SENNOSIDES 1 TABLET PO SCH (20:51)
[2020-08-22] MEDS: 0.9 % SODIUM CHLORIDE 10 ML SYRINGE IV SCH ×2 (06:21→15:15)
[2020-08-22 06:41] LABS: Hematocrit 42.7 % (41.0-55.0); Mean Cell Volume 88.2 fL (80.0-100.0); Mean Corpuscular HGB Conc 32.8 g/dL (31.0-36.0); Mean Platelet Volume 11.6 fL (7.4-10.4); Platelet Count 246 K/mcL (140-440); RBC 4.84 M/mcL (4.50-5.90); Red Cell Distribution Width 13.4 % (11.5-14.5); WBC 12.9 K/mcL (4.5-11.0)
[2020-08-22 07:18] LABS: ALT/SGPT 18 U/L (<40); AST/SGOT 33 U/L (<40); Albumin 2.9 gm/dL (3.2-5.2); Alkaline Phosphatase 44 U/L (39-117); Bilirubin,Direct < 0.2 mg/dL (0-0.3); Bilirubin,Total 0.5 mg/dL (0.1-1.0); Blood Urea Nitrogen 22 mg/dL (8-23); Calcium 8.8 mg/dL (8.6-10.4); Carbon Dioxide 27 mmol/L (22-30); Chloride 105 mmol/L (96-108); Glomerular Filtration Rate 81; Glucose 110 mg/dL (70-105); Lactate Dehydrogenase 516 U/L (135-225); Phosphorous 3.1 mg/dL (2.5-4.5); Triglycerides 45 mg/dL (<150)
[2020-08-22 08:18] LABS: Band Neutrophils % 5 % (0-10); Lymphocytes % 11 % (15-49); Monocytes % (Manual) 5 % (1-12); Platelet Estimate NORMAL (Normal); RBC Morphology NORMAL (Normal); Reactive Lymphocytes 1 % (0-2); Segmented Neutrophils % 78 % (38-78)
[2020-08-22] MEDS: ENOXAPARIN 40 MG/0.4 ML SYRINGE SQ SCH (09:47)
[2020-08-22] MEDS: DEXAMETHASONE 10 MG/ML VIAL IV SCH (09:47)
[2020-08-22] MEDS: DOCUSATE SODIUM 100 MG CAPSULE PO SCH (09:47)
--- NOTE | 2020-08-22 12:28 | Discharge Summary ---
Discharge Provider Provider Patient information: Note initiated : 08/22/20 at 12:23 pm Service Date, if different from initiated Date: [] Patient: Jerome Nazario 79 y/o M admitted on 08/19/20 for covid positive, feels weak. Chief Complaint: [] Date of admission: 08/19/20 20:35 Discharge date: 08/22/20 Primary care physician: Shaka Persaud Consults: 08/19/20 Consult to Physician [CONS] Stat Comment: Consulting Provider: Kennedy Mckeon Reason For Exam: Physician to Consult Discharge Meds Discharge Medications Home Medications No Known Home Meds 08/19/20 [History Confirmed 08/19/20 Last Taken Unknown] dexamethasone 6 mg PO QDAY 7 Days #7 tab 08/22/20 [Rx Last Taken Unknown] COURSE Hospital Course Hospital course: Mr. Nazario is a 79 year old male history of obesity, osteoarthritis status post knee arthroplasty who presented to the ED for progressive shortness of breath, dry cough, and pleuritic chest pain for about 7 days. The patient tested positive for COVID 19 the day prior to presenting to the ED. In the ED the patient had a new oxygen requirement of about 2 l/min. There is no leukocytosis, chest xray appears consistent with viral pneumonia. The patient was admitted for acute hypoxic respiratory failure secondary to COVID 19. 4/8 The patient feels better today, improved oxygen requirement. 4/9 The patient feels better however requiring 3l/min this morning. Desaturates quickly on room air. Repeat chest xray shows bilateral interstitial infiltrates consistent with COVID 19. 4/10 On room air at rest but desaturates with activity. Home oxygen evaluation ordered-the patient requires 5 l/min with activity so will need home oxygen per RT. D-dimer only mildy elevated at .74. Discharged to home with script to complete 10 days of dexamethasone and home oxygen per RT recommendations. Post hospital follow up; -Check oxygen requirements for post COVID-19 follow up. -Monitor for post COVID-19 decompensation. Discharge diagnosis: COVID 19 Time Spent with Patient Time attestation: Total time spent providing and/or coordinating discharge services: EXAM Constitutional Vitals: Temp Pulse Resp BP Pulse Ox 98.2 F 64 16 146/82 96 08/22/20 11:26 08/22/20 11:26 08/22/20 11:26 08/22/20 11:26 08/22/20 11:26 Additional findings Additional findings: Physical exam Head: Atraumatic, normal inspection. Eyes: normal appearance, no scleral icterus. Neck: full ROM Respiratory: bilateral fine rales, no wheezes. Cardiovascular: normal rate and rhythm, S1, S2. GI/Abdominal: soft, nontender, no guarding. Extremities: full range of motion, nontender. Neurological: CN II-XII intact, intact motor, intact sensation. Psychiatric: normal mood. Skin: warm, normal color Discharge Data Data Completed and Pending Labs on day of discharge: Labs from last 24 hours 08/22/20 08/22/20 05:50 05:50 WBC 12.9 H RBC 4.84 Hgb 14.0 Hct 42.7 MCV 88.2 MCH 28.9 MCHC 32.8 RDW 13.4 Plt Count 246 MPV 11.6 H Seg Neutrophils % 78 Band Neutrophils % 5 Lymphocytes % 11 L Monocytes % (Manual) 5 Reactive Lymphocytes 1 Platelet Estimate Normal RBC Morphology Normal Sodium 140 Potassium 4.1 Chloride 105 Carbon Dioxide 27 Anion Gap 8.0 BUN 22 Creatinine 0.9 GFR Calculation 81 Glucose 110 H Uric Acid 6.0 Calcium 8.8 Phosphorus 3.1 Magnesium 1.9 Total Bilirubin 0.5 Direct Bilirubin < 0.2 GGT 19 AST 33 ALT 18 Alkaline Phosphatase 44 Lactate Dehydrogenase 516 H C-Reactive Protein 3.40 H Total Protein 5.9 Albumin 2.9 L Globulin 3.0 Albumin/Globulin Ratio 1.0 Triglycerides 45 Discharge Plan Patient/Caregiver Discharge Instructions Activity: increase activity as tolerated Diet: Regular Diet Instructions: Dexamethasone (By mouth), COVID-19 (Coronavirus Disease 2019)(GEN) Activity Restrictions/Additional Instructions: Resume home diet as tolerated. Take all meals up in chair sitting at 90 degrees. Increase activity as tolerated. Continue fall precautions. Maintain COVID isolation Take all medication as directed. Your prescription is with your discharge paperwork. Pain medication can cause constipation; take an over the counter stool softener and/or laxative while on pain medication. Some medications were electronically transmitted to pharmacy Take your prescription, insurance cards, and photo ID to pickler helper your medication. Return to ER for fever, chills, uncontrolled pain, unable to go to the bathroom, nausea and/or vomiting, swelling, redness, signs of infection, shortness of breath, chest pain, return of symptoms, or other acute symptom This discharge packet is provided to you to help keep you informed about your care. We want to ensure you get everything you need when you go home. You will also be receiving a call from us in a few days to follow up with you and see how you are doing since your discharge. This gives us a chance to listen to any concerns you maybe experiencing since you were discharged or any additional needs you may have, as well as providing us feedback on your care experience. We strive to always provide excellent care and thank you for your feedback and for choosing [facility]. Prescriptions: New dexamethasone 6 mg tablet 6 mg PO QDAY 7 Days Qty: 7 RF: 0 No Action No Known Home Meds RF: 0 Follow Up Plan Follow up with: Shaka Persaud MD [Primary Care Provider] - (contact the office on Thursday 08/24 to schedule an appointment) Patient Disposition: Home, Self-Care Rehab Potential: Fair Overall status at discharge: patient is progressing back to baseline Discharge Orders: Discharge Order (Routine); Ordered 08/22/20 Ordered By: Kennedy ROLLINS VTE Deep Vein Thrombosis/Pulmonary Embolism Present on Admission: No
[2020-08-22] MEDS: REMDESIVIR 100 MG in 0.9 % SODIUM CHLORIDE 250 ML IV SCH (15:15)
== END 2020-08-22 17:27 | disposition home or self-care (01) | DRG 177 ==
LOC: ED 15:25 → MEDSUR 20:35
PROVIDERS: ADMIT Internal Medicine; ATTEND Internal Medicine